=== PATIENT | female | born 1960 | race Caucasian/White ===

== ENCOUNTER 2016-08-26 06:12 | Day surgery (SDC) | payer BC ==
--- NOTE | ~2016-08-26 | EGD ---
EGD REPORT [facility] [address] [place] [address] NAME: ISA QUARLES : [birth year] STATUS : REG [facility]#: [id number] AGE: 55 ADM/REG DATE : 08/26/16 MR#: [id number] REPORT SERV DATE: 08/26/16 DICTATED BY: PEPITO CONDE DATE: 08/26/16 REPORT STATUS : Draft TRANSCRIBED BY: [facility] DATE: 08/26/16 Endoscopy Center Patient Name: Isa Quarles Date of : 1960 Attending MD: PEPITO CONDE MD Procedure Date No Time: 08/26/2016 Procedure: Colonoscopy Indications: High risk colon cancer surveillance: Personal history of colonic polyps Referring MD: Govind Waller Medicines: Monitored Anesthesia Care Complications: No immediate complications. Procedure: Pre-Anesthesia Assessment: - ASA Grade Assessment: III - A patient with severe systemic disease. After I obtained informed consent, the scope was passed under direct vision. Throughout the procedure, the patient's blood pressure, pulse, and oxygen saturations were monitored continuously. The CF [id number] was introduced through the anus and advanced to the cecum, identified by appendiceal orifice and ileocecal valve. The colonoscopy was performed without difficulty. The patient tolerated the procedure well. The quality of the bowel preparation was good. Findings: The digital rectal exam was normal. Pertinent negatives include no palpable rectal lesions. The terminal ileum appeared normal. A few diverticula were found in the sigmoid colon. A sessile polyp was found in the transverse colon. The polyp was 4 mm in size. The polyp was removed with a cold biopsy forceps. Resection and retrieval were complete. A sessile polyp was found in the sigmoid colon. The polyp was 6 mm in size. The polyp was removed with a cold biopsy forceps. Resection and retrieval were complete. Hemorrhoids were found during retroflexion and were mild. Impression: - The examined portion of the ileum was normal. - Diverticulosis in the sigmoid colon. - One 4 mm polyp in the transverse colon. Resected and retrieved. - One 6 mm polyp in the sigmoid colon. Resected and retrieved. - Hemorrhoids. EGD REPORT [address] [address] NAME: ISA QUARLES : [birth year] STATUS : REG [facility] PAT#: [id number] AGE: 55 ADM/REG DATE : 08/26/16 MR#: [id number] REPORT SERV DATE: 08/26/16 DICTATED BY: PEPITO CONDE DATE: 08/26/16 REPORT STATUS : Draft TRANSCRIBED BY: [employer] DATE: 08/26/16 Recommendation: - Patient has a contact number available for emergencies. The signs and symptoms of potential delayed complications were discussed with the patient. Return to normal activities tomorrow. Written discharge instructions were provided to the patient. - Regular diet. - Continue present medications. - Await pathology results. - Repeat colonoscopy for surveillance based on pathology results. - Return to GI clinic PRN. Procedure Code(s): --- Professional --- 14779, Colonoscopy, flexible, proximal to splenic flexure; with biopsy, single or multiple Diagnosis Code(s): --- Professional --- K64.9, Unspecified hemorrhoids K57.30, Diverticulosis of large intestine without perforation or abscess without bleeding D12.5, Benign neoplasm of sigmoid colon D12.3, Benign neoplasm of transverse colon Z86.010, Personal history of colonic polyps CPT copyright 2013 [employer]. All rights reserved. The codes documented in this report are preliminary and upon polishing machine tender review may be revised to meet current compliance requirements. PEPITO CONDE MD 08/26/2016 8:41 AM This report has been signed electronically. Number of Addenda: 0 Note Initiated On: 08/26/2016 8:07 AM Scope Withdrawal Time 0 hours 7 minutes 40 seconds [id number] [id number]
[~2016-08-26 06:12] MED LIST: ALIGN4 MG PO; ASAB PO; CINNAMONPO PO; CO Q-10200 MG PO; COQ10100 MG OR; COREG3 PO; ESTROVEN PO; FISH-EPA1000 MG PO; LIPITOR10 PO; NORV5 PO; PRIN10 PO; RED YEAS1 OR
== END 2016-08-26 23:59 | disposition home health service (06) ==
LOC: DMU 06:12
PROVIDERS: Internal Medicine Gastroenterology
PROC: 0DBN8ZX Excision of Sigmoid Colon, Via Natural or Artificial Opening Endoscopic, Diagnostic (ICD-10-PCS; 2016-08-26)
PROC: 0DBL8ZX Excision of Transverse Colon, Via Natural or Artificial Opening Endoscopic, Diagnostic (ICD-10-PCS; principal; 2016-08-26 08:00)
DX: D12.5 Benign neoplasm of sigmoid colon (principal); K63.5 Polyp of colon; K64.9 Unspecified hemorrhoids; K57.30 Diverticulosis of large intestine without perforation or abscess without bleeding; I10 Essential (primary) hypertension; I42.9 Cardiomyopathy, unspecified; Z86.010 Personal history of colon polyps
CPT/HCPCS: 88305